=== PATIENT | male | born 1945 | race Asian ===

== ENCOUNTER 2017-06-29 10:07 | Day surgery (SDC) | payer MEDICARE, BC ==
[2017-06-29] MEDS ORDERED: PROPOFOL 40 ML (11:24)
== END 2017-06-29 14:12 | disposition home or self-care (01) ==
LOC: GIL 10:07
DX: Z12.11 Encounter for screening for malignant neoplasm of colon (principal); K57.90 Diverticulosis of intestine, part unspecified, without perforation or abscess without bleeding; K64.4 Residual hemorrhoidal skin tags; K21.0 Gastro-esophageal reflux disease with esophagitis; K29.50 Unspecified chronic gastritis without bleeding
CPT/HCPCS: 43239; 88305; 88312; 88313

== ENCOUNTER → 2018-12-25 | Outpatient (CLI) | payer MEDICARE, BC | END | disposition home or self-care (01) | LOC: U/S 14:09 | DX: I25.10 Atherosclerotic heart disease of native coronary artery without angina pectoris (principal); N28.1 Cyst of kidney, acquired | CPT/HCPCS: 76775 ==